=== PATIENT | female | born 1995 | race Caucasian/White ===

== ENCOUNTER 2019-02-22 13:10 | Emergency (ER) | payer OTHER ==
[~2019-02-22] VITALS: Ht 157.4 cm; Wt 97.5 kg
[2019-02-22] MEDS ORDERED: IBUPROFEN 800 MG (MOTRIN) TAB PO STA (13:41)
[2019-02-22 13:57] LABS: BILIRUBIN,URINE NEGATIVE (NEGATIVE); CLARITY,URINE SL CLOUDY; COLOR,URINE YELLOW; GLUCOSE, URINE (UA) NEGATIVE (NEGATIVE); KETONES,URINE NEGATIVE (NEGATIVE); LEUKOCYTE ESTERASE ,URINE NEGATIVE (NEGATIVE); NITRITE,URINE NEGATIVE (NEGATIVE); PROTEIN,URINE NEGATIVE (NEGATIVE)
--- NOTE | 2019-02-22 13:59 | ED Lower Extremity ---
General Chief Complaint: Lower Extremity Stated Complaint: R ANKLE INJ History of Present Illness Date Seen by Provider: Feb 22, 2019 Time Seen by Provider: 13:40 Initial Comments 23-year-old female reports she was getting out of a truck when her left ankle rolled, she went to land with her right foot and it popped. She is complaining of bilateral ankle pain, however at this time the right ankle is significantly worse than the left. She denies any previous injuries to her ankles. She took no medication prior to arrival. Pain/Injury Location: bilateral ankle Allergies and Home Medications Allergies Coded Allergies: No Known Drug Allergies (Unverified , 02/22/19) Home Medications Hydrocodone/Acetaminophen 1 Each Tablet, 1 TAB PO Q6H Prescribed by: JEANNE ANGUIANO on 02/22/19 8022 Patient Home Medication List Home Medication List Reviewed: Yes Review of Systems Constitutional: no symptoms reported, see HPI : No (negative urine hCG) LMP: Feb 15, 2019 Musculoskeletal: see HPI, joint pain (bilateral ankles, right worse than left), joint swelling All Other Systems Reviewed Negative Unless Noted: Yes Past Xbdynqi-Dyoqfo-Xsgoli Hx Past Med/Social Hx: Reviewed Nursing Past Med/Soc Hx Physical Exam Vital Signs Vital Signs - First Documented 02/22/19 13:30 Temp 36.8 Pulse 80 Resp 18 B/P (MAP) 111/78 (89) Pulse Ox 98 Capillary Refill : Height, Weight, BMI Height: '" Weight: lbs. oz. kg; BMI Method: General Appearance: WD/WN, mild distress (secondary to pain) Neck: non-tender, full range of motion, supple, normal inspection Cardiovascular: normal peripheral pulses, regular rate, rhythm, no edema, other (Bilat pedal pulses 2+) Respiratory: chest non-tender, lungs clear, normal breath sounds Knees: bilateral knee non-tender (No tenderness at Prox fibula. ), bilateral knee normal inspection, bilateral knee normal range of motion Ankles: bilateral ankle bone tenderness; right ankle deformity; bilateral ankle limited range of motion (secondary to pain), bilateral ankle pain (right ankle worse than left), bilateral ankle soft tissue tenderness, bilateral ankle swelling (left ankle on the lateral aspect. Right ankle on the medial and lateral aspects) Feet: bilateral foot non-tender (no tenderness through the metatarsals, midfoot or toes.), bilateral foot normal inspection, bilateral foot normal range of motion Neurologic/Tendon: normal sensation, normal motor functions, normal tendon functions Neurologic/Psychiatric: no motor/sensory deficits, alert, normal mood/affect, oriented x 3 Skin: normal color, warm/dry Procedures/Interventions Splinting and Joint Reduction : Location: right ankle Pre-Proc Neuro Vasc Exam: normal Post-Proc Neuro Vasc Exam: normal Progress Patient given ketamine 20 mg IM for pain control. Reduction Attempts: 2 Pre-Procedure NV Exam: Yes post joint reduction film: joint reduced Progress After initial reduction, x-rays were obtained which showed the fibula in good alignment however the ankle was still dislocated. Additional fentanyl 25 g and 10 mg of ketamine for pain. After satisfactory pain control, distal traction and reduction were completed. Postreduction x-ray showed good alignment of the ankle mortise, distal fibula and medial malleolus fracture well aligned. Patient had minimal pain. Reports ankle to be feeling much better. Neurovasc status remains intact: Cap refill in right toes < 2 sec, Pedal pulses 2+, sensation to light touch intact. Leo wrap: Yes Ordered: Crutches Hand-Made Type: orthoglass Splint Application: Short Leg (record tong and posterior splint.) Progress/Results/Core Measures Results/Orders Lab Results Laboratory Tests Test 02/22/19 13:51 Range/Units Urine Color YELLOW Urine Clarity SL CLOUDY Urine pH 8.0 5-9 Urine Specific [place] 1.020 1.016-1.022 Urine Protein NEGATIVE NEGATIVE Urine Glucose (UA) NEGATIVE NEGATIVE Urine Ketones NEGATIVE NEGATIVE Urine Nitrite NEGATIVE NEGATIVE Urine Bilirubin NEGATIVE NEGATIVE Urine Urobilinogen 0.2 < = 1.0 MG/DL Urine Leukocyte Esterase NEGATIVE NEGATIVE Urine RBC (Auto) NEGATIVE NEGATIVE Urine RBC NONE /HPF Urine WBC NONE /HPF Urine Squamous Epithelial Cells 10-25 H /HPF Urine Crystals PRESENT H /LPF Urine Amorphous Sediment LARGE JULIANA PHOSPHATE H /LPF Urine Bacteria FEW H /HPF Urine Casts NONE /LPF Urine Mucus NEGATIVE /LPF Urine Culture Indicated NO My Orders Orders - JEANNE ANGUIANO Urine Bedside (02/22/19 13:40) Ibuprofen Tablet (Motrin Tablet) (02/22/19 13:41) Ankle, Bilateral, 3 Views (02/22/19 13:47) Ua Culture If Indicated (02/22/19 13:52) Ketamine Injection (Ketalar Injection) (02/22/19 15:00) Orphenadrine Injection (Norflex Injectio (02/22/19 15:00) Ketamine Injection (Ketalar Injection) (02/22/19 15:30) Fentanyl Injection (Sublimaze Injection (02/22/19 15:30) Ankle, Right, 3 Views (02/22/19 15:48) Medications Given in ED Current Medications Medications Dose Ordered Sig/Alva Route Start Time Stop Time Status Last Admin Dose Admin Fentanyl Citrate 25 mcg ONCE ONCE IM 02/22/19 15:30 02/22/19 15:31 DC 02/22/19 15:33 25 MCG Ketamine HCl 10 mg ONCE ONCE IM 02/22/19 15:30 02/22/19 15:31 DC 02/22/19 15:33 10 MG Ketamine HCl 20 mg ONCE ONCE IM 02/22/19 15:00 02/22/19 15:01 DC 02/22/19 14:56 20 MG Orphenadrine Citrate 60 mg ONCE ONCE IM 02/22/19 15:00 02/22/19 15:01 DC 02/22/19 14:55 60 MG Vital Signs/I&O 02/22/19 13:30 Temp 36.8 Pulse 80 Resp 18 B/P (MAP) 111/78 (89) Pulse Ox 98 Progress Progress Note : Time: 13:40 Progress Note Patient seen and evaluated, will obtain urine hCG and then x-rays of bilateral ankles. Ibuprofen 800 mg orally for pain. Elevate and ice both ankles. 1410 patient found to have a bimalleolar fracture and dislocation in the right ankle. Pedal pulses are still 2+ bilaterally, sensation of light touch is intact bilaterally. Results discussed with the patient, no acute x-ray findings on the left ankle. 1500 CAM walking boot and LEO wrap to left ankle. Patient understands she will be crutch walking non-weightbearing on the right. 1600 Patient talking and drinking water, no further complaints of ankle or foot pain. Charge instructions and return precautions reviewed with the patient. All questions answered. Diagnostic Imaging Diagonstic Imaging: Xray Plain Films/CT/US/NM/MRI: ankle (bilateral) Comments NAME: PARVEZ SHELDON MED REC#: [id number] PT STATUS: REG ER : 1995 PHYSICIAN: JEANNE ANGUIANO ADMIT DATE: 02/22/19/ER Draft POSDate of Exam:02/22/19 ANKLE, BILATERAL, 3 VIEWS INDICATION: Fall with bilateral ankle pain. AP, oblique, and lateral views of both ankles are obtained. On the right side, there is a comminuted fracture of the distal fibula at and above the ankle joint level. There is an avulsion fracture of the distal tip of the medial malleolus of the distal tibia on the right side. There is dislocation of the right ankle joint with the talus displaced posteriorly relative to the tibia. On the left side, there is no fracture or acute bone abnormality seen. Joint spaces are unremarkable. IMPRESSION: Complex fracture and dislocation of right ankle with comminuted distal fibular fracture and avulsion fracture of the medial malleolus of the distal tibia, as well as posterior dislocation of the talus relative to the tibia. Images of the left ankle are unremarkable. Dictated on workstation # [id number] Dict: 02/22/19 1514 Trans: 02/22/19 1518 [id number] Interpreted by: MARTHA MURCIA MD Electronically signed by: Reviewed: Reviewed by Me Diagonstic Imaging: Xray Plain Films/CT/US/NM/MRI: ankle Comments NAME: PARVEZ SHELDON [facility] REC#: [id number] PT STATUS: REG ER : 1995 PHYSICIAN: COOKIE BROOKS MD ADMIT DATE: 02/22/19/ER Signed POSDate of Exam:02/22/19 ANKLE, RIGHT, 3 VIEWS INDICATION: Right ankle fracture. EXAMINATION: AP, lateral and oblique views of the right ankle are obtained. FINDINGS: Since the study performed earlier in the day, there has been placement of overlying plaster splint. Comminuted fracture dislocation has remained stable in overall alignment. Fractures involve distal fibular shaft as well as medial and posterior tibial malleoli. IMPRESSION: Stable trimalleolar fracture dislocation. Dictated by: Dictated on workstation # [id number] Dict: 02/22/19 1524 Trans: 02/22/19 1656 [facility] [id number] Interpreted by: KENDRICK JASSO MD Electronically signed by: KENDRICK JASSO MD 02/22/191655 Reviewed: Reviewed by Me Diagonstic Imaging: Xray Plain Films/CT/US/NM/MRI: ankle Comments NAME: PARVEZ SHELDON [facility] REC#: [id number] PT STATUS: REG ER : 1995 PHYSICIAN: JEANNE ANGUIANO ADMIT DATE: 02/22/19/ER Signed POSDate of Exam:02/22/19 ANKLE, RIGHT, 3 VIEWS INDICATION: Right ankle fracture dislocation. AP, oblique, and lateral views of the right ankle are obtained at 3:54 p.m. and compared to 3:15 p.m. the same day. Overlying cast is now in place. Comminuted distal fibular fracture is in improved alignment compared to the previous study. An avulsion fracture of the tip of the medial malleolus of the distal tibia is again noted. Posterior malleolar fracture of the distal tibia is again noted. The dislocation of the talus relative to the tibial has improved with some mild residual posterior subluxation. IMPRESSION: Complex trimalleolar fracture is again noted, with improved alignment compared to the previous study of earlier today. Dislocation of the talus relative to the tibia has improved but there is still some residual subluxation. Dictated by: Dictated on workstation # [id number] Dict: 02/22/19 1628 Trans: 02/22/191652 [facility] [id number] Interpreted by: MARTHA MURCIA MD Electronically signed by: MARTHA MURCIA MD 02/22/191652 Reviewed: Reviewed by Me Departure Impression Primary Impression: Fracture dislocation of right ankle Qualified Codes: S82.891A - Other fracture of right lower leg, initial encounter for closed fracture Additional Impression: Sprain of left ankle Qualified Codes: S93.492A - Sprain of other ligament of left ankle, initial encounter Disposition: 01 HOME, SELF-CARE Condition: Improved Departure-Patient Inst. Decision time for Depature: 16:00 Patient Instructions: Ankle Dislocation (DC), Ankle Fracture (DC), Ankle Sprain (DC) Add. Discharge Instructions: Ice and elevate bilateral ankles. Wiggle your toes. Crutches, non-weight wearing right ankle/foot. Follow up with an Orthopedic Surgeon. Call your primary care provider for a referral. Use pain medication as prescribed, 1 tablet every 6 hours. Leo wrap to left ankle. Return to emergency department for new, urgent health care needs. All discharge instructions reviewed with patient and/or family. Voiced understanding. Scripts Hydrocodone/Acetaminophen (Hydrocodone-Acetamin 7.5-325) 1 Each Tablet 1 TAB PO Q6H for PAIN-MODERATE, #20 TAB 0 Refills Prov: JEANNE ANGUIANO 02/22/19 JEANNE ANGUIANO Feb 22, 2019 13:59 POS
[2019-02-22 14:15] LABS: AMORPHOUS SEDIMENT,UR LARGE AMOR PHOSPHATE /LPF; BACTERIA,URINE FEW /HPF
[2019-02-22] MEDS ORDERED: HYDR-3816 PO (14:53)
[2019-02-22] MEDS ORDERED: KETAMINE HCL 100 MG/ML 5 ML VIAL IM ONE ×2 (15:00→15:30)
[2019-02-22] MEDS ORDERED: ORPHENADRINE 60 MG/2 ML (NORFLEX) AMP IM ONE (15:00)
--- NOTE | 2019-02-22 15:19 | Diagnostic Imaging Report ---
INDICATION: Fall with bilateral ankle pain. AP, oblique, and lateral views of both ankles are obtained. On the right side, there is a comminuted fracture of the distal fibula at and above the ankle joint level. There is an avulsion fracture of the distal tip of the medial malleolus of the distal tibia on the right side. There is dislocation of the right ankle joint with the talus displaced posteriorly relative to the tibia. On the left side, there is no fracture or acute bone abnormality seen. Joint spaces are unremarkable. IMPRESSION: Complex fracture and dislocation of right ankle with comminuted distal fibular fracture and avulsion fracture of the medial malleolus of the distal tibia, as well as posterior dislocation of the talus relative to the tibia. Images of the left ankle are unremarkable. Dictated by: Dictated on workstation # [id number]
--- NOTE | 2019-02-22 15:28 | Diagnostic Imaging Report ---
INDICATION: Right ankle fracture. EXAMINATION: AP, lateral and oblique views of the right ankle are obtained. FINDINGS: Since the study performed earlier in the day, there has been placement of overlying plaster splint. Comminuted fracture dislocation has remained stable in overall alignment. Fractures involve distal fibular shaft as well as medial and posterior tibial malleoli. IMPRESSION: Stable trimalleolar fracture dislocation. Dictated by: Dictated on workstation # [id number]
[2019-02-22] MEDS ORDERED: fentaNYL INJECTION 100 MCG/2 ML AMP IM ONE (15:30)
[2019-02-22 16:08] VITALS: BP 127/87
--- NOTE | 2019-02-22 16:31 | Diagnostic Imaging Report ---
INDICATION: Right ankle fracture dislocation. AP, oblique, and lateral views of the right ankle are obtained at 3:54 p.m. and compared to 3:15 p.m. the same day. Overlying cast is now in place. Comminuted distal fibular fracture is in improved alignment compared to the previous study. An avulsion fracture of the tip of the medial malleolus of the distal tibia is again noted. Posterior malleolar fracture of the distal tibia is again noted. The dislocation of the talus relative to the tibial has improved with some mild residual posterior subluxation. IMPRESSION: Complex trimalleolar fracture is again noted, with improved alignment compared to the previous study of earlier today. Dislocation of the talus relative to the tibia has improved but there is still some residual subluxation. Dictated by: Dictated on workstation # [id number]
== END 2019-02-22 16:08 | disposition home or self-care (01) ==
LOC: ER 13:11
DX: S82.891A Other fracture of right lower leg, initial encounter for closed fracture (principal); S93.492A Sprain of other ligament of left ankle, initial encounter; X50.1XXA Overexertion from prolonged static or awkward postures, initial encounter; V58.4XXA Person boarding or alighting a pick-up truck or van injured in noncollision transport accident, initial encounter
CPT/HCPCS: 27750; 27842; 29515; 73610; 81000; 84703